=== PATIENT | female | born 1995 | race Caucasian/White ===

== ENCOUNTER 2021-03-22 11:45 | Inpatient (IN) ==
[2021-03-22] MEDS ORDERED: OXYTOCIN 30 UNITS/500 ML BAG IV PRN (12:28)
--- NOTE | 2021-03-22 12:34 | Labor Progress Brief Note ---
Date of Service March 22, 2021 Subjective at 40w1d with contractions Q3min no LOF no VB good FM, desires NCB, and presents to L&D after calling MD this morning. Assessment & Plan (1) Normal labor and delivery: Physical Exam Physical Exam: Per RN Ana Valentine, 3-4cm dilated FHT Cat 1 but not reactive yet Milligan Q3-5 GBS noted as "collected at L&D" in patient's obstetric record, but it appears that the specimen ordered during her prior L&D visit 02/27/21 was not actually collected and no result is able to be identified in her chart. Will manage as negative given term + unknown, but will order now, and RN Irma made aware via phone to collect new swab today for benefit of peds after delivery. Results & Data ([facility]) Vital Signs (Past 12 Hours) Vital Signs Pulse BP 03/22/21 12:03 83 145/87 H Coding Level of Care Code None Diagnoses Normal labor and delivery O80
[2021-03-22 12:49] LABS: Hematocrit (blood only) 31.3 % (37-47); Hemoglobin 10.2 g/dL (12.0-16.0); Mean Corpuscular Hemoglobin 28.3 pg (25-34); Mean Corpuscular Hgb Conc 32.6 g/dL (32-36); Mean Corpuscular Volume 86.7 fL (80-100); Mean Platelet Volume 9.4 fL (7.4-10.4); Platelet Count 284 K/uL (130-400); RDW Coefficient of Variation 14.1 % (11.5-14.5); RDW Standard Deviation 44.2 fL (36.4-46.3); Red Blood Count 3.61 M/uL (4.2-5.4); White Blood Count 12.76 K/uL (4.8-10.8)
[2021-03-22 13:06] LABS: Alanine Aminotransferase 16 U/L (12-78); Albumin Level 2.2 gm/dl (3.4-5.0); Aspartate Aminotransferase 16 U/L (15-37); BUN Creatinine Ratio 16.3 (10-20); Blood Urea Nitrogen 8 mg/dl (7-18); Calcium 8.8 mg/dl (8.5-10.1); Carbon Dioxide 26 mmol/L (21-32); Chloride 107 mmol/L (98-107); Est GFR (African American) > 150.0 ml/min; Est GFR (Non-African American) 136.4 ml/min; Glucose 105 mg/dl (70-99); Potassium 3.8 mmol/L (3.5-5.1); Sodium 139 mmol/L (136-145)
[2021-03-22 13:09] LABS: Albumin Globulin Ratio 0.6 (0.9-2); Alkaline Phosphatase 202 U/L (45-117); Bilirubin,Total 0.3 mg/dl (0.2-1); Total Protein 6.2 gm/dl (6.4-8.2)
[2021-03-22] MEDS: LACTATED RINGER'S 1,000 ML IV PRN ×2 (15:31→16:35)
[2021-03-22] MEDS ORDERED: SODIUM CHLORIDE 0.9% INJ 10 ML VIAL ONE (15:34)
[2021-03-22] MEDS ORDERED: ePHEDrine sulfate 50 MG/ML AMP ONE (15:34)
[2021-03-22] MEDS ORDERED: BUPIVACAINE 0.25% 30 ML VIAL ONE (15:34)
[2021-03-22] MEDS ORDERED: fentaNYL citrate 100 MCG/2 ML VIAL ONE (15:35)
[2021-03-22] MEDS ORDERED: fentaNYL 2MCG/ML ROPIVACAINE 1.25MG/ML 100 ML BAG EPI ONE (15:35)
--- NOTE | 2021-03-22 15:54 | Anesthesiology Consultation ---
Date of Service March 22, 2021 Assessment & Plan (1) Encounter for pre-operative examination: Chart Review Chart Review: Acceptable Risk for Labor Epidural History Height/Weight Height: 5 ft 9.5 in Weight: 110.223 kg Allergies Allergy/AdvReac Type Severity Reaction Status Date / Time No Known Allergies Allergy Verified 03/22/21 12:04 Medications Home Medications Medication Instructions Recorded Confirmed Last Taken prenat.vits,mable,seg-oqsh-[id number] 1 tab PO DAILY 08/25/20 03/22/21 Unknown breast pump #1 ea 03/17/21 03/20/21 Unknown Active Medications Generic Name Dose Route Start Last Admin Trade Name Freq PRN Reason Stop Dose Admin Lactated Ringer's 1,000 mls @ 125 mls/hr 03/22/21 12:28 03/22/21 15:31 Lr IV 03/24/21 12:27 999 mls/hr .Q8H PRN Administration L&D Protocol Protocol Past Medical History Medical History History of chicken pox Past Family History Family History Grandmother (Maternal) Cervical cancer Grandmother Alzheimer disease great maternal grandmother Mother Deep vein thrombosis Denies family history of Ovarian cancer Breast cancer Colorectal cancer Past Surgical History Surgical History S/P tonsillectomy S/P wisdom tooth extraction Social History Smoking Status: Never smoker Hx Alcohol Use: No Hx Substance Use: No substance use type: does not use Physical Exam Vital Signs Last Vital Signs Temp 36.8 C 03/22/21 15:16 Pulse 86 03/22/21 15:53 Resp 18 03/22/21 15:16 BP 156/79 H 03/22/21 15:17 Pulse Ox 100 03/22/21 15:53 Testing Laboratory Results 03/22/21 12:40 03/22/21 12:40
[2021-03-22] MEDS ORDERED: NALOXONE HCL 1 MG in SODIUM CHLORIDE 0.9% 1000ML 1,000 ML IV PRN (16:36)
[2021-03-22] MEDS ORDERED: ePHEDrine sulfate 50 MG/ML AMP IV PRN (16:36)
[2021-03-22] MEDS ORDERED: NALOXONE HCL 0.4 MG/1 ML VIAL/CARP IV PRN (16:36)
[2021-03-22] MEDS ORDERED: fentaNYL 2MCG/ML ROPIVACAINE 1.25MG/ML 100 ML BAG EPI PRN (16:36)
[2021-03-22] MEDS ORDERED: ONDANSETRON INJ 2 MG/ML 2 ML VIAL IV PRN (16:36)
[2021-03-22] MEDS ORDERED: ACETAMINOPHEN 325 MG TAB PO PRN (17:33)
[2021-03-22] MEDS ORDERED: HYDROCORTISONE ACETATE 25 MG SUPP PR PRN (17:33)
[2021-03-22] MEDS ORDERED: oxyCODONE/ACETAMINOPHEN 5mg/325mg TAB PO PRN (17:33)
[2021-03-22] MEDS ORDERED: SUPERCREAM 0.870% 15 GM JAR EXT PRN (17:33)
[2021-03-22] MEDS ORDERED: BENZOCAINE 20% AER SPR 82.5 GM CAN EXT PRN (17:33)
[2021-03-22] MEDS ORDERED: DIPHTHERIA/TETANUS/PERTUSSIS 0.5 ML SYR/VIAL IM ONE (17:33)
--- NOTE | 2021-03-22 17:33 | Delivery Summary ---
Vaginal Delivery Summary Date of Service March 22, 2021 Vaginal Delivery Summary DIAGNOSES: 1. White intrauterine at 40w1d gestation. 2. Spontaneous onset of labor. 3. Group B Streptococcus unknown. PROCEDURE: Spontaneous vaginal delivery without laceration. SURGEON: Alma Holt MD. FAST FOOD TEAM MEMBER: None. ESTIMATED BLOOD LOSS: 350 mL. COMPLICATIONS: None. PLACENTA: Spontaneous and intact with a 3-vessel cord. DISPOSITION: Stable to labor and delivery. DESCRIPTION: The patient pushed well and brought the head to in DOA position. The 's head was allowed to deliver with contraction force and no further active pushing, with the perineum protected during this time. There was no nuchal cord. The left shoulder was anterior, and the Right hand was compound presentation alongside the left cheek; the right arm was swept phys iologically so that it was fully extended and delivered. The shoulders and body then delivered without any difficulty, and the infant was placed on the maternal abdomen. It was vigorous and moving all extremities, and making respiratory efforts. The cord was doubly clamped by the MD and then cut by the FOB. The placenta delivered spontaneously and was noted to be intact and with a 3VC. The cervix, vagina and perineum were examined and were found to be without defect requiring repair. The fundus was firm and lochia minimal immediately after delivery. [facility] Vaginal Delivery Charge Vaginal Delivery Codes: 89213 global code for the antepartum, delivery, and post-
--- NOTE | 2021-03-22 17:56 | Anesthesia Procedure Note ---
Date of Service March 22, 2021 Anesthesia Post Epidural Note Vital Signs Vital Signs: Temp Pulse Resp BP Pulse Ox 36.8 C 87 18 130/64 99 03/22/21 15:16 03/22/21 17:44 03/22/21 15:16 03/22/21 17:44 03/22/21 17:28 Pain Intensity Abdomen: Pain Intensity: 0 Notes Mental Status: alert / awake / arousable and participated in evaluation Nausea / Vomiting: adequately controlled Pain: adequately controlled Airway Patency, RR, SpO2: stable & adequate BP & HR: stable & adequate Hydration State: stable & adequate Neuraxial Anesthesia: was administered and sensory block is resolving Anesthetic Complications: no major complications apparent Epidural: Removed without complications and With tip intact
[2021-03-22] MEDS: DOCUSATE SODIUM 100 MG CAP PO SCH (21:02)
[2021-03-22] MEDS: IBUPROFEN 600 MG TAB PO PRN (23:44)
[2021-03-23] MEDS: IBUPROFEN 600 MG TAB PO PRN ×3 (04:35→15:36)
[2021-03-23 06:07] LABS: Hematocrit (blood only) 29.1 % (37-47); Hemoglobin 9.5 g/dL (12.0-16.0); Mean Corpuscular Hemoglobin 28.3 pg (25-34); Mean Corpuscular Hgb Conc 32.6 g/dL (32-36); Mean Corpuscular Volume 86.6 fL (80-100); Mean Platelet Volume 9.6 fL (7.4-10.4); Platelet Count 249 K/uL (130-400); RDW Coefficient of Variation 14.2 % (11.5-14.5); RDW Standard Deviation 44.5 fL (36.4-46.3); Red Blood Count 3.36 M/uL (4.2-5.4); White Blood Count 12.67 K/uL (4.8-10.8)
--- NOTE | 2021-03-23 06:35 | Obstetrical Progress Note ---
Date of Service March 23, 2021 Assessment & Plan (1) Normal labor and delivery: Recovered normally, prefers d/c today if possible. Instructions reviewed. Subjective Ambulation: ambulating normally Voiding: no voiding problems Passing Gas:: Yes Diet Tolerance:: regular diet Lochia:: Small Feeding Type:: breast feeding Physical Exam Constitutional WD/WN, vitals as above Eyes PERRL, conjunctivae normal, anicteric sclerae Neck normal visual inspection Respiratory normal respiratory effort and able to speak in complete sentences; no respiratory distress and no labored breathing Cardiovascular Rate/Rhythm: regular rate and regular rhythm Extremities: no edema Chest (Breasts) Chest: normal inspection of chest Gastrointestinal (Abdomen) Inspection/Auscultation: abdomen normal to inspection Soft, postgravid Psychiatric A+Ox3, euthymic affect Genitourinary OB Exam Abdomen: + fundal height Fundus: + firm and + relation to umbilicus (fundus just below umbilicus); not tender Results & Data ([facility]) Vital Signs (Past 12 Hours) Vital Signs Temp Pulse Pulse Resp BP BP Pulse Ox 03/23/21 04:35 97.5 F L 81 16 123/84 97 03/22/21 23:40 98.1 F 82 18 126/74 97 03/22/21 20:55 98.4 F 83 16 143/86 H 96 03/22/21 19:43 80 18 134/80 03/22/21 19:28 80 139/77 03/22/21 19:13 79 139/66 03/22/21 19:00 18 03/22/21 18:58 82 139/74 03/22/21 18:43 77 140/74
[2021-03-23] MEDS ORDERED: PRENATAL VITAMIN 1 TAB PO SCH (08:00)
[2021-03-23] MEDS: DOCUSATE SODIUM 100 MG CAP PO SCH (08:29)
== END 2021-03-23 18:50 | disposition home or self-care (01) | DRG 807 ==
LOC: OPB 11:45 → 4S1 11:45 → 4S2 20:15

== ENCOUNTER 2023-01-01 15:35 | Inpatient (IN) ==
[2023-01-01] MEDS ORDERED: LIDOCAINE 1% LOCAL 20 ML VIAL INFIL PRN (16:09)
[2023-01-01] MEDS ORDERED: OXYTOCIN 30 UNITS/500 ML BAG IV PRN ×2 (16:09→20:59)
[2023-01-01] MEDS ORDERED: LACTATED RINGER'S 1,000 ML IV PRN (16:09)
[2023-01-01] MEDS ORDERED: ePHEDrine sulfate 50 MG/ML AMP ONE (16:20)
[2023-01-01] MEDS ORDERED: BUPIVACAINE 0.25% PF 30 ML VIAL ONE (16:20)
[2023-01-01] MEDS ORDERED: LIDOCAINE 2%/EPINEPHRINE 1:200,000 20 ML PF ONE (16:20)
[2023-01-01] MEDS ORDERED: fentaNYL citrate PF 100 MCG/2 ML VIAL ONE (16:20)
[2023-01-01] MEDS ORDERED: SODIUM CHLORIDE 0.9% PF INJ 10 ML VIAL ONE (16:20)
[2023-01-01] MEDS ORDERED: fentaNYL 2MCG/ML ROPIVACAINE 1.25MG/ML 100 ML BAG EPI ONE (16:21)
[2023-01-01 16:51] LABS: Hematocrit (blood only) 32.5 % (37.0-47.0); Hemoglobin 10.6 g/dl (12.0-16.0); Mean Corpuscular Hemoglobin 28.8 pg (25.0-34.0); Mean Corpuscular Hgb Conc 32.6 g/dL (32.0-36.0); Mean Corpuscular Volume 88.3 fL (80.0-100.0); Platelet Count 297 K/uL (130-400); RDW Coefficient of Variation 13.4 % (11.5-14.5); RDW Standard Deviation 43.4 fL (36.4-46.3); Red Blood Count 3.68 M/uL (4.20-5.40); White Blood Count 12.33 K/ul (4.8-10.8)
--- NOTE | 2023-01-01 17:02 | Anesthesiology Consultation ---
Date of Service January 01, 2023 Assessment & Plan (1) Encounter for pre-operative examination: Chart Review Chart Review: Acceptable Risk for Labor Epidural History Height/Weight Height: 5 ft 10 in Weight: 107.955 kg Allergies Allergy/AdvReac Type Severity Reaction Status Date / Time No Known Allergies Allergy Verified 12/28/22 10:35 Medications Home Medications Medication Instructions Recorded Confirmed Last Taken prenat.vits,mable,kie-uiwe-ldsmd 1 tab PO DAILY 08/25/20 01/01/23 12/29/22 09:00 breast pump #1 ea 12/15/22 12/28/22 Unknown Past Medical History Medical History History of chicken pox Past Family History Family History Grandmother (Maternal) Cervical cancer Grandmother Alzheimer disease great maternal grandmother Mother Deep vein thrombosis Denies family history of Ovarian cancer Breast cancer Colorectal cancer Past Surgical History Surgical History S/P tonsillectomy S/P wisdom tooth extraction Social History Smoking Status: Never smoker Hx Alcohol Use: No Hx Substance Use: No substance use type: does not use Physical Exam Vital Signs Last Vital Signs Temp 36.6 C 01/01/23 15:52 Pulse 86 01/01/23 16:44 Resp 20 01/01/23 15:52 BP 142/84 H 01/01/23 16:44 Testing Laboratory Results 01/01/23 16:25
[2023-01-01] MEDS ORDERED: ONDANSETRON INJ 2 MG/ML 2 ML VIAL IV PRN (17:41)
[2023-01-01] MEDS ORDERED: fentaNYL 2MCG/ML ROPIVACAINE 1.25MG/ML 100 ML BAG EPI PRN (17:41)
[2023-01-01] MEDS ORDERED: ePHEDrine sulfate 50 MG/ML AMP IV PRN (17:41)
[2023-01-01] MEDS ORDERED: NALOXONE HCL 0.4 MG/1 ML VIAL/CARP IV PRN (17:41)
[2023-01-01] MEDS ORDERED: NALOXONE HCL 1 MG in SODIUM CHLORIDE 0.9% 1000ML 1,000 ML IV PRN (17:41)
[2023-01-01] MEDS ORDERED: DIPHTHERIA/TETANUS/PERTUSSIS 0.5mL SYR/VIAL (Age 7+yrs) IM ONE (20:59)
[2023-01-01] MEDS ORDERED: ACETAMINOPHEN 325 MG TAB PO PRN (20:59)
[2023-01-01] MEDS ORDERED: BENZOCAINE 20% AER SPR 82.5 GM CAN EXT PRN (20:59)
[2023-01-01] MEDS ORDERED: HYDROCORTISONE ACETATE 25 MG SUPP PR PRN (20:59)
--- NOTE | 2023-01-01 21:54 | Delivery Summary ---
DATE OF SERVICE: 01/01/2023. PROCEDURE: Normal spontaneous vaginal delivery. SURGEON: Gama Bangura MD. PREOPERATIVE DIAGNOSES: 1. Single intrauterine at 39 weeks 2 days gestational age. 2. Active labor. POSTOPERATIVE DIAGNOSES 1. Single intrauterine at 39 weeks 2 days gestational age. 2. Active labor. 3. Status post procedure. ESTIMATED BLOOD LOSS: 100 mL. DRAINS: None. FLUIDS: Continuous lactated Ringer. URINE OUTPUT: Not measured. COMPLICATIONS: None. FINDINGS: Viable female with weight pending and Apgars of 8 and 9 at one and five minutes re spectively. INDICATIONS: Shannon is a 27-year-old G4, P3, admitted at 39 weeks 2 days gestational age, in active labor. At initial evaluation, she was found to be 5 cm dilated, 80% effaced, negative 2 station. Th e patient progressed in labor without augmentation. She received an epidural for anesthesia and unde rwent artificial rupture of membranes for clear fluid. DESCRIPTION OF PROCEDURE: The patient progressed to 10 cm dilated, 100% effaced, positive 2 station, pushed over intact perineum with epidural anesthesia and delivered a viable female with weig ht and Apgars as noted above. Head of the delivered in CHARLENE position, restituted to left aguilar sverse. No nuchal cord was noted. Body and shoulders quickly followed. was noted to be vig orous upon delivery and 1 minute delayed cord clamping was initiated. Cord was then double clamped a nd cut. remained on maternal abdomen. Cord blood was obtained. Attention was then turned t o delivery of the placenta, which was delivered intact, 3-vessel cord, gentle cord traction. On insp ection of perineum, vagina, cervix, there was noted to be no lacerations. Sponge and instrument coun ts were correct at the completion of the case. Job ID: [id number]
--- NOTE | 2023-01-01 22:16 | Anesthesia Procedure Note ---
Date of Service January 01, 2023 Anesthesia Post Epidural Note Vital Signs Vital Signs: Temp Pulse Resp BP Pulse Ox 36.8 C 72 18 141/77 H 90 01/01/23 19:10 01/01/23 22:14 01/01/23 22:00 01/01/23 22:14 01/01/23 21:03 Pain Intensity Bilateral Anterior Abdomen: Pain Intensity: 0 Notes Mental Status: alert / awake / arousable and participated in evaluation Patient Amnestic to Procedure: No Nausea / Vomiting: adequately controlled Pain: adequately controlled Airway Patency, RR, SpO2: stable & adequate BP & HR: stable & adequate Hydration State: stable & adequate Neuraxial Anesthesia: was administered and sensory block is resolving Anesthetic Complications: no major complications apparent and Pt Satisfied with anesthetic care Epidural: Removed without complications and With tip intact
[2023-01-02] MEDS: DOCUSATE SODIUM 100 MG CAP PO SCH ×3 (00:20→20:13)
[2023-01-02] MEDS: IBUPROFEN 600 MG TAB PO PRN ×4 (03:39→20:13)
[2023-01-02] MEDS: PRENATAL VITAMIN 1 TAB PO SCH (07:17)
--- NOTE | 2023-01-02 08:30 | Obstetrical Progress Note ---
Date of Service January 02, 2023 Assessment & Plan (1) Encounter for postoperative care: Day 1 status post vaginal delivery. Elevated blood pressures noted since delivery. Preeclampsia labs normal. Patient is asymptomatic. will start labetalol 200 mg b.i.d. Continue care. (2) Gestational hypertension without significant proteinuria: Subjective Ambulation: ambulating normally Voiding: no voiding problems Passing Gas:: Yes Diet Tolerance:: regular diet Lochia:: Moderate Feeding Type:: breast feeding Physical Exam Constitutional WD/WN, vitals as above Respiratory normal respiratory effort; no respiratory distress and no labored breathing Cardiovascular NO CALF TENDERNESS. Gastrointestinal (Abdomen) Inspection/Auscultation: abdomen normal to inspection; abdomen not distended Percussion/Palpation: abdomen soft; abdomen nontender, no guarding and abdomen not rigid Genitourinary OB Exam Abdomen: + fundal height Fundus: + firm and + relation to umbilicus (Below); not tender or not boggy Results & Data Vital Signs (Past 12 Hours) Vital Signs Temp Pulse Pulse Pulse Resp BP BP 01/02/23 07:30 01/02/23 07:30 36.5 C 75 16 151/88 H 01/02/23 03:37 36.5 C 76 18 148/82 H 01/02/23 00:00 01/02/23 00:00 36.6 C 81 18 01/01/23 23:00 18 01/01/23 22:30 16 01/01/23 22:00 18 01/01/23 21:45 16 01/01/23 21:30 16 01/01/23 21:15 18 01/01/23 21:00 16 01/01/23 22:44 84 01/01/23 22:44 155/76 H 01/01/23 22:29 90 01/01/23 22:29 139/73 01/01/23 22:14 72 01/01/23 22:14 141/77 H 01/01/23 21:59 83 01/01/23 21:59 151/82 H 01/01/23 21:44 80 01/01/23 21:44 143/71 H 01/01/23 21:30 84 01/01/23 21:30 142/68 H 01/01/23 21:15 86 01/01/23 21:15 125/61 01/01/23 21:03 01/01/23 21:03 93 H 01/01/23 20:59 01/01/23 20:59 91 H 01/01/23 21:00 88 01/01/23 21:00 155/67 H 01/01/23 20:58 01/01/23 20:58 94 H 01/01/23 20:53 01/01/23 20:53 96 H 01/01/23 20:52 01/01/23 20:52 93 H 01/01/23 20:48 01/01/23 20:48 113 H 01/01/23 20:47 01/01/23 20:47 101 H 01/01/23 20:46 116 H 01/01/23 20:46 164/66 H 01/01/23 20:43 01/01/23 20:43 96 H 01/01/23 20:40 01/01/23 20:40 93 H 01/01/23 20:38 01/01/23 20:38 92 H 01/01/23 20:35 01/01/23 20:35 90 01/01/23 20:33 01/01/23 20:33 85 01/01/23 20:29 01/01/23 20:29 89 01/01/23 20:30 88 01/01/23 20:30 142/78 H 01/01/23 20:28 01/01/23 20:28 87 BP Pulse Ox O2 Del Method 01/02/23 07:30 Room Air 01/02/23 07:30 144/87 H 97 Room Air 01/02/23 03:37 Room Air 01/02/23 00:00 Room Air 01/02/23 00:00 136/90 96 Room Air 01/01/23 23:00 01/01/23 22:30 01/01/23 22:00 01/01/23 21:45 01/01/23 21:30 01/01/23 21:15 01/01/23 21:00 01/01/23 22:44 01/01/23 22:44 01/01/23 22:29 01/01/23 22:29 01/01/23 22:14 01/01/23 22:14 01/01/23 21:59 01/01/23 21:59 01/01/23 21:44 01/01/23 21:44 01/01/23 21:30 01/01/23 21:30 01/01/23 21:15 01/01/23 21:15 01/01/23 21:03 90 01/01/23 21:03 01/01/23 20:59 92 01/01/23 20:59 01/01/23 21:00 01/01/23 21:00 01/01/23 20:58 97 01/01/23 20:58 01/01/23 20:53 95 01/01/23 20:53 01/01/23 20:52 94 01/01/23 20:52 01/01/23 20:48 67 L 01/01/23 20:48 01/01/23 20:47 92 01/01/23 20:47 01/01/23 20:46 01/01/23 20:46 01/01/23 20:43 72 L 01/01/23 20:43 01/01/23 20:40 88 L 01/01/23 20:40 01/01/23 20:38 97 01/01/23 20:38 01/01/23 20:35 91 01/01/23 20:35 01/01/23 20:33 97 01/01/23 20:33 01/01/23 20:29 93 01/01/23 20:29 01/01/23 20:30 01/01/23 20:30 01/01/23 20:28 97 01/01/23 20:28
[2023-01-02 08:55] LABS: Hematocrit (blood only) 31.9 % (37.0-47.0); Hemoglobin 10.4 g/dl (12.0-16.0); Mean Corpuscular Hemoglobin 29.2 pg (25.0-34.0); Mean Corpuscular Hgb Conc 32.6 g/dL (32.0-36.0); Mean Corpuscular Volume 89.6 fL (80.0-100.0); Mean Platelet Volume 10.1 fL (9.4-12.4); Platelet Count 249 K/uL (130-400); RDW Coefficient of Variation 13.4 % (11.5-14.5); RDW Standard Deviation 44.1 fL (36.4-46.3); Red Blood Count 3.56 M/uL (4.20-5.40)
[2023-01-02] MEDS: LABETALOL HCL 200 MG TAB PO SCH ×2 (08:58→22:18)
[2023-01-02 09:06] LABS: Alanine Aminotransferase 11 U/L (7-52); Aspartate Aminotransferase 13 U/L (13-39); Creatinine Clr Calc Pharmacy 226.9 ml/min; Est GFR (African American) > 150.0 ml/min; Est GFR (Non-African American) 133.6 ml/min
[2023-01-02] MEDS: FERROUS SULFATE 325 MG TAB PO SCH (09:45)
[2023-01-02] MEDS ORDERED: bisacodyL 5 MG TABEC PO SCH (20:00)
--- NOTE | 2023-01-03 06:41 | Obstetrical Progress Note ---
Date of Service January 03, 2023 Assessment & Plan (1) Encounter for care and examination after delivery: Plan: - Overall, feeling well and eating well today - feeding going well without concern - Urinating and passing gas appropriately - Ambulating well in room - Pain controlled w/ Ibuprofen - Gestational HTN: managed with Labetalol 200 (currently 120s/80s), pre- eclampsia labs unremarkable, asymptomatic - Anticipate BP check 1 week PP - Hgb 10.4 on 01/02 - Vitals stable and wnl - Routine PP care progressing well - Anticipate discharge @ 48-72 hours PP - Recommending f/u outpatient in 6 weeks (2) Gestational hypertension without significant proteinuria: Admission and Anticipated Discharge Date Admission Date: January 01, 2023 Supervising Physician Co-Signing Physician Notes patient seen and evaluated with resident and agree with the above findings and plan. Continue routine care. Denying any anemia symptoms. Subjective Patient is a 27F who is PPD #2 following delivery at 39 2/7. She reports feeling well overall this morning. - Ambulation - well throughout room - Voiding/De Oliveira - independent voids, no dysuria or pressure - Gas/Stool - passing gas, no bowel movement - Diet - regular, no nausea or emesis - Lochia - diminishing, light amount - Feeding Type - breast feeding w/o concern - Pain Level - 0/10, controlled with Ibuprofen Review of Systems - Denies fever, chills, sweats - Denies shortness of breath, difficulty breathing, chest pain, palpitations, chest pressure. - Denies breast pain. - Denies dysuria. - Denies headache or changes in vision. Physical Exam Physical Exam: General: Alert, oriented. No acute distress. Cardiac: RRR, normal S1/S2, no murmurs/rubs/gallops. Respiratory: Non-labored, CTAB, no wheezes/rales/rhonchi. Symmetric chest rise. Abdomen: Soft, nontender, nondistended. Bowel sounds present. Uterus: Uterine fundus firm, palpable 2 cm below umbilicus. Lower Extremities: No lower extremity edema or swelling. No deep calf pain. Carina's negative bilaterally. Results & Data Vital Signs (Past 12 Hours) Vital Signs Temp Pulse Resp BP Pulse Ox O2 Del Method 01/02/23 23:50 Room Air 01/02/23 23:50 36.7 C 79 18 120/79 Room Air 01/02/23 22:18 137/79 01/02/23 20:00 36.6 C 77 16 124/83 98 Room Air Resident Activity Tracking Resident Involvement: Resident Care Provided Care Provided: OB Delivery
[2023-01-03] MEDS: DOCUSATE SODIUM 100 MG CAP PO SCH (08:50)
[2023-01-03] MEDS: FERROUS SULFATE 325 MG TAB PO SCH (08:50)
[2023-01-03] MEDS: PRENATAL VITAMIN 1 TAB PO SCH (08:50)
[2023-01-03] MEDS: LABETALOL HCL 200 MG TAB PO SCH (08:50)
[2023-01-03] MEDS ORDERED: bisacodyL 10 MG SUPP PR PRN (20:59)
== END 2023-01-03 12:25 | disposition home or self-care (01) | DRG 807 ==
LOC: OPB 15:35 → 4S1 15:36 → 4E2 23:26